=== PATIENT | female | born 1995 | race Two or more races ===

== ENCOUNTER 2022-10-28 21:23 | Emergency (ER) | payer OTHER ==
[~2022-10-28] VITALS: Ht 160 cm; Wt 90.9 kg
[2022-10-28] MEDS ORDERED: IBUPROFEN 600 MG TABLET PO ONE (23:15)
[2022-10-28 23:45] VITALS: BP 135/84
[2022-10-29] MEDS ORDERED: IBUP-1492 PO (00:21)
== END 2022-10-29 00:49 | disposition home or self-care (01) ==
LOC: EMS 21:27
DX: S16.1XXA Strain of muscle, fascia and tendon at neck level, initial encounter (principal); F12.90 Cannabis use, unspecified, uncomplicated; V89.2XXA Person injured in unspecified motor-vehicle accident, traffic, initial encounter; Y93.89 Activity, other specified; Y92.89 Other specified places as the place of occurrence of the external cause; Y99.8 Other external cause status
CPT/HCPCS: 99282; Z7502; Z7610